=== PATIENT | female | born 1985 | race Caucasian/White ===

== ENCOUNTER 2019-05-31 14:31 | Emergency (ER) | payer OTHER ==
[~2019-05-31] VITALS: Ht 165.1 cm; Wt 63.5 kg
[2019-05-31 14:40] VITALS: BP 134/60
[2019-05-31] MEDS ORDERED: NOHOMEMEDICATIONS (14:42)
[2019-05-31] MEDS ORDERED: AMOXICILLIN 50500 MG PO (14:46)
[2019-05-31] MEDS ORDERED: NAPROSYN500 M1 PO (14:46)
== END 2019-05-31 14:57 | disposition home or self-care (01) ==
LOC: M.ERS 14:31
DX: K02.9 Dental caries, unspecified (principal)

== ENCOUNTER 2020-05-20 21:46 | Emergency (ER) | payer OTHER ==
[~2020-05-20] VITALS: Ht 165.1 cm; Wt 59.0 kg
[~2020-05-20 21:46] MED LIST: AMOXICILLIN 50500 MG PO; NAPROSYN500 M1 PO; NOHOMEMEDICATIONS
[2020-05-20] MEDS ORDERED: HYDROCODON-ACE1 EAC8 PO (22:24)
[2020-05-20] MEDS ORDERED: ACYCLOVIR 400400 MG PO (22:24)
[2020-05-20 22:31] VITALS: BP 145/70
== END 2020-05-20 22:31 | disposition home or self-care (01) ==
LOC: M.ERS 21:46
DX: B02.9 Zoster without complications (principal)